=== PATIENT | male | born 1975 | race Caucasian/White ===

== ENCOUNTER 2020-01-03 23:09 | Emergency (ER) | payer SELFPAY ==
[2020-01-03 23:46] LABS: Absolute Lymphocytes (CBC) 3.6 K/uL (0.7-4.9); Hematocrit 43.5 % (39.6-49.0); Lymphocytes % 29.6 % (15.3-44.8); MPV 8.8 fL (7.6-11.3); RBC Red Blood Cell Count 5.08 M/uL (4.33-5.43)
[2020-01-03 23:49] LABS: Protime INR 0.85
[2020-01-04 00:01] LABS: ALT/SGPT 21 U/L (12-78); AST/SGOT 14 U/L (15-37); Albumin 3.6 g/dL (3.4-5.0); Alkaline Phosphatase 55 U/L (45-117); BUN Blood Urea Nitrogen 16 mg/dL (7-18); Bicarbonate 26 mmol/L (21-32); Bilirubin Direct < 0.1 mg/dL (0-0.2); Bilirubin Total 0.2 mg/dL (0.2-1.0); CKMB Creatine Kinase MB 3.5 ng/mL (0.3-3.6); Creatine Phosphokinase 248 U/L (39-308); Glucose Level 176 mg/dL (74-106); Lipase 97 U/L (73-393); Magnesium 2.1 mg/dL (1.8-2.4); Potassium 3.3 mmol/L (3.5-5.1); Protein, Total 6.9 g/dL (6.4-8.2); Sodium Level 139 mmol/L (136-145); Troponin (Emerg Dept Use Only) < 0.02 ng/mL (0.0-0.045)
--- NOTE | 2020-01-04 00:10 | EDPHYS ---
Physician Documentation [facility] Name: Tyrell Beavers Age: 44 yrs Sex: Male : 1975 Arrival Date: 01/03/2020 Time: 23:10 Bed 15 Private MD: ED Physician Sarah Washington HPI: 01/02 23:24 This 44 yrs old Male presents to ER via Unassigned with complaints of Syncope.ma2 23:24 The patient has experienced syncope, The patient has experienced near-syncope. Onset: ma2 The symptoms/episode began/occurred suddenly, 1 hour(s) ago. Duration: This was a single episode. Associated injury: The patient did not suffer any apparent associated injury. Associated signs and symptoms: Pertinent negatives: ataxia, blurred vision, combativeness, diaphoresis. The patient has not experienced similar symptoms in the past. Historical: - Allergies: 01/03 00:39 No Known Allergies; ls4 - Home Meds: 00:39 Lisinopril Oral [Active]; venlafaxine oral oral [Active]; ls4 - PMHx: 00:39 Hypertension; ls4 - Immunization history:: Adult Immunizations up to date, Flu vaccine is not up to date. Patient has never been vaccinated. - Social history:: Patient/guardian denies using alcohol, street drugs, The patient lives with family, Smoking status: Patient reports the use of cigarette tobacco products, smokes one-half pack cigarettes per day, Patient uses alcohol, occasionally. - Family history:: not pertinent. ROS: 01/02 23:24 Constitutional: Negative for fever, chills, and weight loss, Eyes: Negative for injury, ma2 pain, redness, and discharge. All other systems are negative. Exam: 23:24 Constitutional: This is a well developed, well nourished patient who is awake, alert, ma2 and in no acute distress. Head/Face: Normocephalic, atraumatic. Eyes: Pupils equal round and reactive to light, extra-ocular motions intact. Lids and lashes normal. Conjunctiva and sclera are non-icteric and not injected. Cornea within normal limits. Periorbital areas with no swelling, redness, or edema. ENT: Nares patent. No nasal discharge, no septal abnormalities noted. Tympanic membranes are normal and external auditory canals are clear. Oropharynx with no redness, swelling, or masses, exudates, or evidence of obstruction, uvula midline. Mucous membranes moist. Neck: Trachea midline, no thyromegaly or masses palpated, and no cervical lymphadenopathy. Supple, full range of motion without nuchal rigidity, or vertebral point tenderness. No Meningismus. Chest/axilla: Normal chest wall appearance and motion. Nontender with no deformity. No lesions are appreciated. Cardiovascular: Regular rate and rhythm with a normal S1 and S2. No gallops, murmurs, or rubs. Normal PMI, no JVD. No pulse deficits. Respiratory: Lungs have equal breath sounds bilaterally, clear to auscultation and percussion. No rales, rhonchi or wheezes noted. No increased work of breathing, no retractions or nasal flaring. Abdomen/GI: Soft, non-tender, with normal bowel sounds. No distension or tympany. No guarding or rebound. No evidence of tenderness throughout. MS/ Extremity: Pulses equal, no cyanosis. Neurovascular intact. Full, normal range of motion. Neuro: Awake and alert, GCS 15, oriented to person, place, time, and situation. Cranial nerves II-XII grossly intact. Motor strength 5/5 in all extremities. Sensory grossly intact. Cerebellar exam normal. Normal gait. Vital Signs: 23:07 BP 112 / 73; Pulse 88; Resp 14; Temp 98.1(O); Pulse Ox 100% on R/A; Weight 95.25 kg; ls4 Height 5 ft. 8 in. (172.72 cm); Pain 0/10; 01/03 00:08 BP 118 / 74; Pulse 79; Resp 14; Pulse Ox 100% on R/A; Pain 0/10; ls4 01/02 23:07 Body Mass Index 31.93 (95.25 kg, 172.72 cm) ls4 MDM: 01/02 23:18 Patient medically screened. ma2 23:24 Differential Diagnosis: drug effect, emotional response, idiopathic syncope, vasovagal ma2 episode. Data reviewed: vital signs, nurses notes. 01/03 00:09 Counseling: I had a detailed discussion with the patient and/or guardian regarding: the ma2 historical points, exam findings, and any diagnostic results supporting the discharge/admit diagnosis, the presence of at least one elevated blood pressure reading (>120/80) during this emergency department visit, the need for outpatient follow up. Response to treatment: the patient's symptoms have resolved after treatment. 01/02 23:12 Order name: Basic Metabolic Panel; Complete Time: 00:09 [facility] 01/02 23:12 Order name: CBC with Diff; Complete Time: 00:09 [facility] 01/02 23:12 Order name: Ckmb; Complete Time: 00: [facility] 01/02 23:12 Order name: CPK; Complete Time: 00: [facility] 01/02 23:12 Order name: Hepatic Function; Complete Time: 00: [facility] 01/02 23:12 Order name: Lipase; Complete Time: 00: [facility] 01/02 23:12 Order name: Magnesium; Complete Time: 00: [facility] 01/02 23:12 Order name: Protime (+inr); Complete Time: 00: [facility] 01/02 23:12 Order name: Ptt, Activated; Complete Time: 00: [facility] 01/02 23:12 Order name: Troponin (emerg Dept Use Only); Complete Time: 00: [facility] 01/02 23:12 Order name: EKG; Complete Time: 23:14 [facility] 01/02 23:12 Order name: Cardiac monitoring; Complete Time: 00: [facility] 01/02 23:12 Order name: EKG - Nurse/Tech; Complete Time: 00: [facility] 01/02 23:12 Order name: IV Saline Lock; Complete Time: 00: [facility] 01/02 23:12 Order name: Labs collected and sent; Complete Time: 00: [facility] 01/02 23:12 Order name: NPO; Complete Time: 00 [facility] 01/02 23:12 Order name: O2 Per Protocol; Complete Time: 00: [facility] 01/02 23:12 Order name: O2 Sat Monitoring; Complete Time: 4 Administered Medications: 00:28 Not Given (Patient Refused): NS 0.9% 1000 ml IV at 1 bolus Per protocol; 1000 mL bolus ls4 Point of Care Testin/26 23:07 see bmp ls4 Ranges: Critical Glucose Levels:Adult <50 mg/dl or >400 mg/dl <40 mg/dl or >180 mg/dl Disposition: 01/04/20 00:09 Discharged to Home. Impression: Syncope and collapse. - Condition is Stable. - Discharge Instructions: Syncope, [id number]. - Medication Reconciliation Form, Thank You Letter, Antibiotic Education, Prescription Opioid Use form. - Follow up: Private Physician; When: Tomorrow; Reason: Continuance of care. Signatures: Dispatcher [employer] EDMS Sarah Washington MD MD ma2 Krystin Solis RN RN ls4 Corrections: (The following items were deleted from the chart) 01/03 00:45 00:09 01/04/2020 00:09 Discharged to Home. Impression: Syncope and collapse. Condition ls4 is Stable. Forms are Medication Reconciliation Form, Thank You Letter, Antibiotic Education, Prescription Opioid Use. Follow up: Private Physician; When: Tomorrow; Reason: Continuance of care. colton
--- NOTE | 2020-01-04 00:46 | ER ---
Nurse's Notes [facility] Name: Tyrell Beavers Age: 44 yrs Sex: Male : 1975 Arrival Date: 01/03/2020 Time: 23:10 Bed 15 Private MD: Diagnosis: Syncope and collapse Presentation: 01/02 23:10 Chief complaint: Patient states: I took a viagra and was walking with my family, got ls4 dizzy and then they lowered me to the ground. I feel ok now. 23:10 Coronavirus screen: Patient denies fever greater than 100.4F, cough, shortness of ls4 breath, or difficulty breathing. Proceed with normal triage process. Ebola Screen: No symptoms or risks identified at this time. Initial Sepsis Screen: Does the patient meet any 2 criteria? No. Patient's initial sepsis screen is negative. Does the patient have a suspected source of infection? No. Patient's initial sepsis screen is negative. Risk Assessment: Do you want to hurt yourself or someone else? Patient reports no desire to harm self or others. Care prior to arrival: IV initiated. 18 GA, in the right antecubital area. 23:10 Method Of Arrival: EMS: [facility] ls4 23:10 Acuity: LAURA 3 ls4 Triage Assessment: 23:10 General: Appears in no apparent distress. comfortable, Behavior is calm, cooperative. ls4 23:10 Pain: Denies pain. Neuro: No deficits noted. Level of Consciousness is awake, alert, ls4 obeys commands, Oriented to person, place, time, situation, Reports a syncopal episode Denies weakness blurred vision dizziness, difficulty swallowing, paresthesias numbness headache photophobia diplopia. Cardiovascular: Denies chest pain, diaphoresis, fatigue, lightheadedness, nausea, palpitations, shortness of breath, vomiting, Capillary refill < 3 seconds Clubbing of nail beds is absent Patient's skin is warm and dry. Rhythm is regular Chest pain is denied. Respiratory: Airway is patent Respiratory effort is even, unlabored, Respiratory pattern is regular. GI: No deficits noted. No signs and/or symptoms were reported involving the gastrointestinal system. : No deficits noted. No signs and/or symptoms were reported regarding the genitourinary system. Derm: No deficits noted. No signs and/or symptoms reported regarding the dermatologic system. Musculoskeletal: No deficits noted. No signs and/or symptoms reported regarding the musculoskeletal system. Injury Description: no injuries. Historical: - Allergies: 01/03 00:39 No Known Allergies; ls4 - Home Meds: 00:39 Lisinopril Oral [Active]; venlafaxine oral oral [Active]; ls4 - PMHx: 00:39 Hypertension; ls4 - Immunization history:: Adult Immunizations up to date, Flu vaccine is not up to date. Patient has never been vaccinated. - Social history:: Patient/guardian denies using alcohol, street drugs, The patient lives with family, Smoking status: Patient reports the use of cigarette tobacco products, smokes one-half pack cigarettes per day, Patient uses alcohol, occasionally. - Family history:: not pertinent. Screenin/26 23:10 Abuse screen: Denies threats or abuse. Denies injuries from another. Nutritional ls4 screening: No deficits noted. Tuberculosis screening: No symptoms or risk factors identified. Fall Risk None identified. Assessment: 01/03 00:01 Reassessment: Patient appears in no apparent distress at this time. Patient and/or ls4 family updated on plan of care and expected duration. Pain level reassessed. Patient is alert, oriented x 3, equal unlabored respirations, skin warm/dry/pink. Patient states feeling better. 00:01 Neuro: No deficits noted. Cardiovascular: No deficits noted. Injury Description: no ls4 visible injuries. Vital Signs: 01/02 23:07 BP 112 / 73; Pulse 88; Resp 14; Temp 98.1(O); Pulse Ox 100% on R/A; Weight 95.25 kg; ls4 Height 5 ft. 8 in. (172.72 cm); Pain 0/10; 01/03 00:08 BP 118 / 74; Pulse 79; Resp 14; Pulse Ox 100% on R/A; Pain 0/10; ls4 01/02 23:07 Body Mass Index 31.93 (95.25 kg, 172.72 cm) ls4 ED Course: 01/02 23:10 Patient arrived in ED. ls4 23:10 Arm band placed on right wrist. ls4 23:10 EKG completed in triage. Results shown to MD. ls4 23:11 Krystin Solis, RN is Primary Nurse. ls4 23:18 Sarah Washington MD is Attending Physician. ma2 01/03 00:15 No provider procedures requiring assistance completed. ls4 00:15 IV discontinued, intact, bleeding controlled, No redness/swelling at site. Pressure ls4 dressing applied. 00:38 Triage completed. ls4 Administered Medications: 00:28 Not Given (Patient Refused): NS 0.9% 1000 ml IV at 1 bolus Per protocol; 1000 mL bolus ls4 Point of Care Testin/26 23:07 see bmp ls4 Ranges: Outcome: 01/03 00:09 Discharge ordered by . ma2 00:15 Discharged to home ambulatory. ls4 00:15 Condition: good 00:15 Discharge instructions given to patient, Instructed on discharge instructions, follow up and referral plans. medication usage, Demonstrated understanding of instructions, follow-up care, medications. 00:45 Patient left the ED. ls4 Signatures: Sarah Washington MD MD ma2 Krystin Solis, RN RN ls4 Corrections: (The following items were deleted from the chart) 00:44 00:44 No provider procedures requiring assistance completed. ls4 ls4
[2020-01-04 01:13] VITALS: BP 118/74; O2SAT 100
--- NOTE | 2020-01-04 11:21 | EKG ---
Test Date: 2020-01-03 Test Time: 23:09:05 Logistics Project Manager: MEASUREMENT RESULTS: Intervals: Rate: 94 WV: 158 QRSD: 108 QT: 358 QTc: 447 Backus: P: 64 WV: 158 QRS: -5 T: 54 INTERPRETIVE STATEMENTS: Normal sinus rhythm Possible Left atrial enlargement Incomplete right bundle branch block Septal infarct, age undetermined Abnormal ECG Compared to ECG 12/27/2008 10:42:35 Incomplete right bundle-branch block now present Myocardial infarct finding now present Electronically Signed On 01-04-20 11:20:10 CDT by Maciej Ireland
== END 2020-01-04 00:45 | disposition home or self-care (01) ==
LOC: ER 23:09
DX: R55 Syncope and collapse (principal); I10 Essential (primary) hypertension; F17.210 Nicotine dependence, cigarettes, uncomplicated
CPT/HCPCS: 36415; 80048; 80076; 82550; 82553; 83690; 83735; 84484; 85025; 85610; 85730; 93005; 99283

== ENCOUNTER 2020-09-07 22:41 | Emergency (ER) | payer BC ==
[2020-09-07] MEDS ORDERED: ONDANSETRON 4 MG/2 ML VIAL ONE (23:45)
[2020-09-07] MEDS ORDERED: NA CHLORIDE 0.9% 1,000 ML ONE (23:45)
[2020-09-07 23:58] LABS: Absolute Lymphocytes (CBC) 7.3 K/uL (0.7-4.9); Basophils % 0.7 % (0-1.3); Hematocrit 49.2 % (39.6-49.0); Lymphocytes % 33.4 % (15.3-44.8); MPV 9.2 fL (7.6-11.3)
[2020-09-08 00:09] LABS: ALT/SGPT 28 U/L (12-78); AST/SGOT 20 U/L (15-37); Alkaline Phosphatase 62 U/L (45-117); BUN Blood Urea Nitrogen 20 mg/dL (7-18); Bicarbonate 28 mmol/L (21-32); Bilirubin Direct < 0.1 mg/dL (0-0.2); Bilirubin Total 0.2 mg/dL (0.2-1.0); Glucose Level 98 mg/dL (74-106); Lipase 125 U/L (73-393); Potassium 3.2 mmol/L (3.5-5.1); Protein, Total 7.9 g/dL (6.4-8.2); Sodium Level 139 mmol/L (136-145)
[2020-09-08] MEDS ORDERED: CEFTRIAXONE/SWI 1gm 1 GM/10 ML SYR ONE (00:20)
[2020-09-08] MEDS ORDERED: METRONIDAZOLE 500mg IVPB 500 MG/100 ML BAG IV ONE (00:21)
[2020-09-08 00:26] LABS: Blood Morphology Comment NOT SEEN (NOT SEEN); Platelet Estimate ADEQ
--- NOTE | 2020-09-08 01:56 | ER ---
Nurse's Notes [facility] [place], [place] Name: Tyrell Beavers Age: 44 yrs Sex: Male : 1975 Arrival Date: 09/07/2020 Time: 22:50 Bed 7 Private MD: Diagnosis: Other and unspecified noninfective gastroenteritis and colitis;Pneumonia due to other specified infectious organisms Presentation: 09/07 22:51 Chief complaint: EMS states: Pt complaining of abdominal pain, nausea and vomiting. Pt ea reports his symptoms started last night, reports his stools have been softer than normal. EMS initiated 18 G RAC, 12.5 Phenergan administered to pt. Coronavirus screen: At this time, the client does not indicate any symptoms associated with coronavirus-19. Ebola Screen: No symptoms or risks identified at this time. Initial Sepsis Screen: Does the patient meet any 2 criteria? No. Patient's initial sepsis screen is negative. Does the patient have a suspected source of infection? No. Patient's initial sepsis screen is negative. Risk Assessment: Do you want to hurt yourself or someone else? Patient reports no desire to harm self or others. Onset of symptoms was September 07, 2020. 22:51 Method Of Arrival: Ambulatory ea 22:51 Acuity: LAURA 3 ea Triage Assessment: 22:57 General: Appears uncomfortable, Behavior is appropriate for age. Pain: Complains of ea pain in abdomen. GI: Reports nausea, vomiting. Historical: - Allergies: 22:58 No Known Allergies; ea - Home Meds: 22:58 lisinopril Oral [Active]; venlafaxine Oral [Active]; ea - PMHx: 22:58 Hypertension; ea - Immunization history:: Adult Immunizations up to date. - Social history:: Smoking status: Patient denies any tobacco usage or history of. Patient/guardian denies using alcohol, street drugs, The patient lives alone, with spouse. - Family history:: not pertinent. Screenin:56 Abuse screen: Denies threats or abuse. Nutritional screening: No deficits noted. ea Tuberculosis screening: No symptoms or risk factors identified. Fall Risk IV access (20 points). Assessment: 23:00 General: Appears in no apparent distress. Behavior is calm, cooperative, appropriate ll2 for age. Pain: Complains of pain in abdomen. Neuro: Level of Consciousness is awake, alert, obeys commands, Oriented to person, place, time, situation. Cardiovascular: Patient's skin is warm and dry. Respiratory: Airway is patent Respiratory effort is even, unlabored, Respiratory pattern is regular, symmetrical. GI: Bowel sounds present X 4 quads. Abd is soft and non tender. 09/08 00:03 Reassessment: Patient is alert, oriented x 3, equal unlabored respirations, skin ll2 warm/dry/pink. 00:03 Reassessment: critical lab result received, WBC-21.3, ERD notified. ll2 00:29 Reassessment: pt states nausea is improved at this time. ll2 01:00 Reassessment: pt wheeled to ct with tech via stretcher. ll2 01:20 Reassessment: pt returned from ct, pump reconnected. ll2 01:21 Reassessment: pt states nausea is imprived and is not currently experiencing any pain. ll2 Vital Signs: 09/07 22:51 BP 98 / 68; Pulse 85; Resp 18; Pulse Ox 91% ; ea 23:16 BP 96 / 71; Pulse 90; Resp 26; Temp 98.3; Pulse Ox 95% on 2 lpm NC; ll2 09/08 00:15 BP 95 / 55; Pulse 87; Resp 27; Pulse Ox 96% on 2 lpm NC; ll2 ED Course: 09/07 22:50 Patient arrived in ED. ea 22:52 Sarah Washington MD is Attending Physician. ma2 22:56 Triage completed. ea 22:56 Maintain EMS IV. Dressing intact. Good blood return noted. Site clean \T\ dry. Gauge \T\ ea site: 18 G to RAC. 22:57 Patient has correct armband on for positive identification. Bed in low position. Call ea light in reach. quality assurance monitor body on. Pulse ox on. NIBP on. 22:57 Arm band placed on right wrist. Patient placed in an exam room, on a stretcher, on ea nurse monitoring, on pulse oximetry. 23:07 Barbara Cardona RN is Primary Nurse. ll2 23:36 Report given to ADAM Brennan. 2 09/08 01:31 CT Abd/Pelvis - PO and IV Contrast In Process Unspecified. EDMS 02:12 No provider procedures requiring assistance completed. IV discontinued, intact, ll2 bleeding controlled, No redness/swelling at site. Pressure dressing applied. Administered Medications: 09/07 23:35 Drug: Zofran (Ondansetron) 4 mg Route: IVP; Site: right antecubital; ll2 09/08 00:24 Follow up: Response: No adverse reaction; Nausea is decreased ll2 09/07 23:36 Drug: NS 0.9% 1000 ml Route: IV; Rate: 1000 ml; Site: right antecubital; ll2 09/08 00:10 Drug: Rocephin 1 grams Route: IV; Rate: calculated rate; Site: right antecubital; ll2 00:12 Follow up: Response: No adverse reaction; IV Status: Completed infusion; IV Intake: [id number] 00:10 Drug: Flagyl 500 mg Volume: 100 ml; Route: IVPB; Rate: 200 ml/hr; Infused Over: 30 ll2 mins; Site: right antecubital; 01:10 Follow up: Response: No adverse reaction; IV Status: Completed infusion; IV Intake: ll2 100ml Intake: 00:12 IV: 10ml; Total: 10ml. ll2 01:10 IV: 100ml; Total: 110ml. ll2 Outcome: 01:55 Discharge ordered by . ma2 02:12 Discharged to home ambulatory. ll2 02:12 Condition: stable 02:12 Discharge instructions given to patient, Instructed on discharge instructions, follow up and referral plans. medication usage, Demonstrated understanding of instructions, follow-up care, medications, Prescriptions given X 2. 02:13 Patient left the ED. ll2 Signatures: Dispatcher [employer] EDCT Ade Milian RN RN ea Alzahri, Mohammad, MD MD ma2 [place], Lacie, RN RN ll2
--- NOTE | 2020-09-08 01:56 | EDPHYS ---
Physician Documentation [facility] Name: Tyrell Beavers Age: 44 yrs Sex: Male : 1975 Arrival Date: 09/07/2020 Time: 22:50 Bed 7 Private MD: ED Physician Sarah Washington HPI: 09/07 23:28 This 44 yrs old Male presents to ER via Ambulatory with complaints of ma2 Abdominal Pain. 23:28 The patient presents with abdominal pain. Onset: The symptoms/episode began/occurred ma2 gradually, 1 day(s) ago. Associated signs and symptoms: Pertinent negatives: anorexia, chest pain, diarrhea. Severity of pain: At its worst the pain was moderate in the emergency department the pain is unchanged. The patient has not experienced similar symptoms in the past. Historical: - Allergies: 22:58 No Known Allergies; ea - Home Meds: 22:58 lisinopril Oral [Active]; venlafaxine Oral [Active]; ea - PMHx: 22:58 Hypertension; ea - Immunization history:: Adult Immunizations up to date. - Social history:: Smoking status: Patient denies any tobacco usage or history of. Patient/guardian denies using alcohol, street drugs, The patient lives alone, with spouse. - Family history:: not pertinent. ROS: 23:28 Constitutional: Negative for fever, chills, and weight loss. ma2 23:28 All other systems are negative. Exam: 23:28 Constitutional: This is a well developed, well nourished patient who is awake, alert, ma2 and in no acute distress. Head/Face: Normocephalic, atraumatic. Chest/axilla: Normal chest wall appearance and motion. Nontender with no deformity. No lesions are appreciated. Cardiovascular: Regular rate and rhythm with a normal S1 and S2. No gallops, murmurs, or rubs. Normal PMI, no JVD. No pulse deficits. Respiratory: Lungs have equal breath sounds bilaterally, clear to auscultation and percussion. No rales, rhonchi or wheezes noted. No increased work of breathing, no retractions or nasal flaring. Abdomen/GI: Soft, non-tender, with normal bowel sounds. No distension or tympany. No guarding or rebound. No evidence of tenderness throughout. Vital Signs: 22:51 BP 98 / 68; Pulse 85; Resp 18; Pulse Ox 91% ; ea 23:16 BP 96 / 71; Pulse 90; Resp 26; Temp 98.3; Pulse Ox 95% on 2 lpm NC; ll2 09/08 00:15 BP 95 / 55; Pulse 87; Resp 27; Pulse Ox 96% on 2 lpm NC; ll2 MDM: 09/07 22:53 Patient medically screened. mn2 09/08 01:52 Differential diagnosis: gastritis, Hepatitis, Herpes Zoster, Irritable bowel syndrome. ma2 Data reviewed: vital signs, nurses notes. Counseling: I had a detailed discussion with the patient and/or guardian regarding: the historical points, exam findings, and any diagnostic results supporting the discharge/admit diagnosis, the presence of at least one elevated blood pressure reading (>120/80) during this emergency department visit, the need for outpatient follow up. Response to treatment: the patient's symptoms have markedly improved after treatment. 01:52 ED course: although wbs is elevated no other component of SIRS, he has acute colitis on mn2 ct, (done with both po and iv contrast) and pneumonia, he feels much better at this time his pain is almost resolved and want to go home . 09/07 23:25 Order name: Basic Metabolic Panel; Complete Time: 00:29 ma2 09/07 23:25 Order name: CBC with Diff; Complete Time: 00:29 ma2 09/07 23:25 Order name: Hepatic Function; Complete Time: 00:29 ma2 09/07 23:25 Order name: Lipase; Complete Time: 00: mn2 09/07 23:25 Order name: CT Abd/Pelvis - PO and IV Contrast mn2 09/08 00:11 Order name: Manual Differential; Complete Time: 00:29 EDMS 09/08 01:00 Order name: Urine Dipstick--Ancillary (enter results) tt3 09/07 23:15 Order name: IV Saline Lock; Complete Time: 23:15 ll2 09/07 23:15 Order name: Labs collected and sent; Complete Time: 23:15 2 09/07 23:25 Order name: NPO; Complete Time: 00:24 ma2 Administered Medications: 09/07 23:35 Drug: Zofran (Ondansetron) 4 mg Route: IVP; Site: right antecubital; ll2 09/08 00:24 Follow up: Response: No adverse reaction; Nausea is decreased ll2 09/07 23:36 Drug: NS 0.9% 1000 ml Route: IV; Rate: 1000 ml; Site: right antecubital; ll2 09/08 00:10 Drug: Rocephin 1 grams Route: IV; Rate: calculated rate; Site: right antecubital; ll2 00:12 Follow up: Response: No adverse reaction; IV Status: Completed infusion; IV Intake: [id number] 00:10 Drug: Flagyl 500 mg Volume: 100 ml; Route: IVPB; Rate: 200 ml/hr; Infused Over: 30 ll2 mins; Site: right antecubital; 01:10 Follow up: Response: No adverse reaction; IV Status: Completed infusion; IV Intake: ll2 100ml Disposition: 09/08/20 01:55 Discharged to Home. Impression: Other and unspecified noninfective gastroenteritis and colitis, Pneumonia due to other specified infectious organisms. - Condition is Stable. - Discharge Instructions: Community-Acquired Pneumonia, Adult, Colitis. - Prescriptions for Flagyl 500 mg Oral Tablet - take 4 tablet by ORAL route one time for 1 day; 4 tablet. Cipro 500 mg Oral Tablet - take 1 tablet by ORAL route every 12 hours for 7 days; 14 tablet. - Medication Reconciliation Form, Thank You Letter, Antibiotic Education, Prescription Opioid Use form. - Follow up: Private Physician; When: Tomorrow; Reason: Continuance of care. - Notes: you have been prescribed flagyl, an antibiotic that is not recommended to take while drinking alcohol Signatures: Dispatcher [employer] [facility] [place] Ade Milian, RN Sarah Obrien ea, MD MD ma2 Barbara Cardona RN RN ll2 Corrections: (The following items were deleted from the chart) 00:31 09/07 23:26 Abdomen Pelvis W [id number] ordered. [facility] 09/08 02:13 01:55 09/08/2020 01:55 Discharged to Home. Impression: Other and unspecified ll2 noninfective gastroenteritis and colitis; Pneumonia due to other specified infectious organisms. Condition is Stable. Forms are Medication Reconciliation Form, Thank You Letter, Antibiotic Education, Prescription Opioid Use. Follow up: Private Physician; When: Tomorrow; Reason: Continuance of care. ma2
[2020-09-08 02:46] LABS: Urine Glucose NEGATIVE (NEG); Urine Specific Gravity >1.030 (1.005-1.030)
[2020-09-08 02:47] LABS: Urine Blood NEGATIVE (NEG); Urine Protein 3+ (NEG); Urine pH 5.5 (5.0-7.0)
[2020-09-08 06:03] VITALS: TEMP 98.3
[2020-09-08 06:05] VITALS: BP 95/55; O2SAT 96
--- NOTE | 2020-09-08 09:36 | RAD REPORT ---
EXAM DESCRIPTION: CT - Abdomen Pelvis W Contrast - 09/08/2020 3:48 am CLINICAL HISTORY: ABD PAIN COMPARISON: None Available. TECHNIQUE: CT of the abdomen and pelvis performed following IV administration of iodinated contras t. Oral contrast administered. FINDINGS: Lung Bases: Patchy bilateral peripheral and central groundglass opacities. Bones: Degenerative endplate spondylosis and facet arthropathy of the spine. Degenerative disc height narrowing at L3/4 through L5/S1. Degenerative spurring of the left sacroiliac joint. Abdomen: Liver: The liver has normal size and density. No intrahepatic biliary dilatation. Gallbladder: No calcified gallstones. Spleen, Pancreas, and Adrenal Glands: The spleen, pancreas, and adrenal glands are unremarkable. Kidneys: No hydronephrosis or obstructing calculus. Small bilateral renal cysts. Mild nonspecific bilateral perinephric fat stranding Vasculature: Aortoiliac atherosclerosis. IVC is unremarkable. The portal vein is patent. The proxim al visceral and renal arteries are patent. Stomach: The stomach and duodenum have normal course. Other: No free intraperitoneal air. No free fluid or lymphadenopathy. Pelvis: Bladder: Urinary bladder is unremarkable. Bowel: No dilated loops of large or small bowel. Wall thickening with submucosal fatty infiltration of the ascending colon. Appendix: Normal appendix. Pelvis: Prostate is not enlarged. IMPRESSION: 1. Patchy bilateral groundglass opacities in the lung bases. Commonly reported imaging f eatures of viral pneumonia are present. Other processes such as influenza pneumonia and organizing pn eumonia, as can be seen with drug toxicity and connective tissue disease, can cause a similar imaging pattern. PneTyp Reference: https://pubs.[facility]na.org/doi/full/[email or web address]/ryct.[email or web address] 2. Wall thickening with fatty infiltration of the ascending colon. Findings could be seen with nonspe cific acute or chronic inflammatory colitis. This exam was performed according to our departmental dose-optimization program, which includes autom ated exposure control, adjustment of the mA and/or kV according to patient size and/or use of iterati ve reconstruction technique. Electronically signed by: Jeramie Woods 09/08/2020 1:47 AM [employer] Due to temporary technical issues with the PACS/Fluency reporting system, reports are being signed by the in house radiologist without review as a courtesy to ensure prompt reporting. The interpreting r adiologist is fully responsible for the content of the report.
== END 2020-09-08 02:13 | disposition home or self-care (01) ==
LOC: ER 22:41
DX: K52.9 Noninfective gastroenteritis and colitis, unspecified (principal); J16.8 Pneumonia due to other specified infectious organisms; I10 Essential (primary) hypertension
CPT/HCPCS: 96365; 85025; 80048; 36415; 80076; 81003; 83690; 74177; 96375; 99284; Q9967; J0696; J7030; J2405